=== PATIENT | male | born 1955 | race Caucasian/White ===

== ENCOUNTER 2020-12-30 13:21 | Emergency (ER) | payer MEDICARE ==
[2020-12-30 13:27] VITALS: PULSE 76
--- NOTE | 2020-12-30 13:56 | ED ---
General Adult HPI - General Chief complaint: Upper Respiratory Infection Stated complaint: Wants BAM treatment Time Seen by Provider: 12/30/20 13:44 Source: patient, RN notes reviewed Mode of arrival: ambulatory Limitations: no limitations - History of Present Illness Initial comments: Patient is a pleasant [age]-year-old male presenting to the emergency department with concerns for COVID-19 infection. Onset of symptoms was a days ago. Patient has had cough. Patient has been extremity fatigue and chills. Decreased appetite. No loss of taste or smell. No dyspnea. No vomiting or diarrhea. Symptoms have continued and persisted. - Related Data Allergies Allergy/AdvReac Type Severity Reaction Status Date / Time No Known Allergies Allergy Verified 12/30/20 13:27 Review of Systems ROS Statement: Those systems with pertinent positive or pertinent negative responses have been documented in the HPI. ROS Other: All systems not noted in ROS Statement are negative. Constitutional: Reports: chills. Denies: fever Eyes: Denies: eye pain ENT: Denies: ear pain Respiratory: Reports: cough. Denies: dyspnea Cardiovascular: Denies: chest pain Endocrine: Reports: fatigue Gastrointestinal: Denies: abdominal pain, vomiting Genitourinary: Denies: dysuria Musculoskeletal: Denies: back pain Skin: Denies: rash Neurological: Denies: weakness Past Medical History Past Medical History: No Reported History History of Any Multi-Drug Resistant Organisms: None Reported Past Surgical History: No Surgical Hx Reported Past Psychological History: No Psychological Hx Reported Smoking Status: Never smoker Past Alcohol Use History: None Reported Past Drug Use History: None Reported General Exam Limitations: no limitations General appearance: alert, in no apparent distress Head exam: Present: normocephalic Eye exam: Present: normal appearance Neck exam: Present: normal inspection Respiratory exam: Present: normal lung sounds bilaterally Cardiovascular Exam: Present: regular rate, normal rhythm GI/Abdominal exam: Present: soft. Absent: tenderness Extremities exam: Present: normal inspection Neurological exam: Present: alert Psychiatric exam: Present: normal affect, normal mood Skin exam: Present: normal color Course Vital Signs 12/30/20 13:24 Temperature 98.3 F Pulse Rate 76 Respiratory 20 Rate Blood Pressure 113/70 O2 Sat by Pulse 96 Oximetry Medical Decision Making - Medical Decision Making Positive PCR. Patient will receive monoclonal antibodies prior to discharge. Discussion had with patient about risks and benefits. - Lab Data Lab Results 12/30/20 Range/Units 13:33 Coronavirus (PCR) Detected A (Not Detectd) Disposition Clinical Impression: COVID-19 Disposition: HOME SELF-CARE Condition: Stable Instructions (If sedation given, give patient instructions): Upper Respiratory Infection (ED) Additional Instructions: Please remain quarantined until 10 days from onset of symptoms and 24 hours fever free. Continue [id number] vitamin C, vitamin D, and zinc. [id number] melatonin at bedtime may be helpful as well. Return for difficulty breathing, not tolerating fluids, worsening or change in symptoms or any other concerns. Is patient prescribed a controlled substance at d/c from ED?: No Referrals: Franklin Thomas [STAFF PHYSICIAN] - 1-2 days Time of Disposition: 14:16
[2020-12-30] MEDS ORDERED: SODIUM CHLORIDE 0.9% 50 ML IVPB ONE (14:30)
[2020-12-30] MEDS ORDERED: BAMLANIVIMAB (EUA) 700 MG, ETESEVIMAB (EUA) 1,400 MG in SODIUM CHLORIDE 0.9% 50 ML IVPB ONE (14:45)
[2020-12-30 15:22] VITALS: BP 115/79; RESP 16; TEMP 98
== END 2020-12-30 17:00 | disposition home or self-care (01) ==
LOC: EC 13:21
DX: U07.1 COVID-19 (principal)
CPT/HCPCS: 87635; 99283; 96360; Q0245